=== PATIENT | male | born 1950 | race Caucasian/White ===

== ENCOUNTER 2017-12-06 11:18 | Inpatient (IN) | payer MEDICARE, MEDICAID ==
[~2017-12-06] VITALS: Ht 180.3 cm; Wt 62.6 kg
[2017-12-06] MEDS ORDERED: ESCI10TA PO (11:43)
[2017-12-06] MEDS ORDERED: PENI250C2 PO (11:43)
[2017-12-06] MEDS ORDERED: METF500T6 PO (11:43)
[2017-12-06] MEDS ORDERED: IV NORMAL SALINE 500 ML BAG IV ONE (12:00)
[2017-12-06 12:06] LABS: BASOPHILS % (AUTO) 0.4 % (0.0-2.0); EOSINOPHILS # (AUTO) 0.1 K/uL (0.0-0.7); EOSINOPHILS % (AUTO) 0.8 % (0.0-7.0); HEMATOCRIT 39.2 % (36.7-47.1); HEMOGLOBIN 12.9 g/dL (12.5-16.3); LYMPHOCYTES # (AUTO) 0.6 K/uL (20.0-40.0); LYMPHOCYTES % (AUTO) 8.3 % (20.5-51.5); MEAN CORPUSCULAR HEMOGLOBIN 26.4 uug (23.8-33.4); MEAN CORPUSCULAR HGB CONC 33 g/dL (32.5-36.3); MEAN CORPUSCULAR VOLUME 80.3 fL (73.0-96.2); MONOCYTES # (AUTO) 0.6 K/uL (2.0-10.0); MONOCYTES % (AUTO) 8.2 % (0.0-11.0); NEUTROPHILS # (AUTO) 5.9 K/uL (1.8-8.9); NEUTROPHILS % (AUTO) 82.3 % (38.5-71.5); PLATELET COUNT (AUTO) 179 K/uL (152-348); RED BLOOD CELL COUNT(AUTO) 4.88 MIL/uL (4.06-5.63); WHITE BLOOD COUNT (AUTO) 7.2 K/uL (3.6-10.2)
[2017-12-06 12:17] LABS: CREATININE 0.8 mg/dL (0.6-1.3); POTASSIUM 4.7 mmol/L (3.5-5.1)
[2017-12-06 12:25] LABS: BILIRUBIN,DIRECT 0.1 mg/dL (0.0-0.2); BILIRUBIN,TOTAL 0.1 mg/dL (0.2-1.0); TOTAL PROTEIN, SERUM 8.2 g/dL (6.4-8.2)
[2017-12-06] MEDS ORDERED: INSULIN REGULAR, HUMAN 1,000 UNITS/10 ML VIAL SUBCUT ONE (12:30)
[2017-12-06] MEDS ORDERED: INSULIN REGULAR, HUMAN 300 UNIT/3 ML VIAL ONE (12:34)
[2017-12-06] MEDS ORDERED: IV NORMAL SALINE 100 ML ONE (12:53)
[2017-12-06] MEDS ORDERED: IOHEXOL 300MG/ML 100 ML INFUS..BTL ONE (12:53)
[2017-12-06] MEDS ORDERED: SWABABLE VALVE TRANSFER SET EA MC ONE (12:53)
[2017-12-06 13:36] LABS: *BILIRUBIN,URIN NEGATIVE (NEGATIVE); *BLOOD, URINE NEGATIVE (NEGATIVE); *CLARITY,URINE CLOUDY (CLEAR); *COLOR,URINE YELLOW (YELLOW); *KETONES,URINE NEGATIVE (NEGATIVE); *PROTEIN,URINE 1+ (NEGATIVE); LEUKOCYTE ESTERASE ,URINE 2+ (NEGATIVE); NITRITE, URINE NEGATIVE (NEGATIVE)
[2017-12-06 13:48] LABS: UGLUCOSE 2+ (NEGATIVE)
[2017-12-06 13:57] LABS: BACTERIA,URINE MANY /HPF (NONE SEEN); RBC,URINE 0-3 /HPF (0-3); SQUAMOUS EPITHELIAL CELL,UR MODERATE /HPF (NONE SEEN); WBC,URINE 80-100 /HPF (0-3)
[2017-12-06 14:35] VITALS: BP 139/77
[2017-12-06] MEDS ORDERED: DEXTROSE 50% 50 ML DISP.SYRIN IV PRN (17:00)
[2017-12-06] MEDS: INSULIN REGULAR, HUMAN 300 UNIT/3 ML VIAL SQ PRN ×2 (17:39→20:30)
[2017-12-06] MEDS: BLOOD SUGAR DIAGNOSTIC 1 EACH STRIP VI SCH ×2 (17:41→20:28)
[2017-12-06] MEDS: CEFTRIAXONE 1 G in IV DEXTROSE 5% 50 ML IV SCH (19:47)
[2017-12-06 20:26] VITALS: BP 121/77
[2017-12-07 04:51] VITALS: BP 124/76
[2017-12-07] MEDS: PANTOPRAZOLE SODIUM 40 MG TABLET.DR PO SCH (06:10)
[2017-12-07] MEDS: BLOOD SUGAR DIAGNOSTIC 1 EACH STRIP VI SCH ×4 (06:34→20:21)
[2017-12-07] MEDS: INSULIN REGULAR, HUMAN 300 UNIT/3 ML VIAL SQ PRN ×4 (07:21→20:23)
[2017-12-07] MEDS: ESCITALOPRAM OXALATE 10 MG TABLET PO SCH (08:04)
[2017-12-07 11:01] VITALS: BP 126/76
[2017-12-07 15:06] VITALS: BP 113/69
[2017-12-07 20:00] VITALS: BP 107/69
[2017-12-07] MEDS: CEFTRIAXONE 1 G in IV DEXTROSE 5% 50 ML IV SCH (20:15)
[2017-12-08] VITALS (9 sets, daily range): BP systolic 100–129; BP diastolic 59–96
[2017-12-08] MEDS: PANTOPRAZOLE SODIUM 40 MG TABLET.DR PO SCH (06:23)
[2017-12-08] MEDS: BLOOD SUGAR DIAGNOSTIC 1 EACH STRIP VI SCH ×4 (06:32→20:35)
[2017-12-08 06:37] LABS: BASOPHILS % (AUTO) 0.3 % (0.0-2.0); EOSINOPHILS # (AUTO) 0.1 K/uL (0.0-0.7); EOSINOPHILS % (AUTO) 1.3 % (0.0-7.0); HEMATOCRIT 34.6 % (36.7-47.1); HEMOGLOBIN 11.4 g/dL (12.5-16.3); LYMPHOCYTES # (AUTO) 0.8 K/uL (20.0-40.0); LYMPHOCYTES % (AUTO) 11.4 % (20.5-51.5); MEAN CORPUSCULAR HEMOGLOBIN 26.3 uug (23.8-33.4); MEAN CORPUSCULAR HGB CONC 33 g/dL (32.5-36.3); MEAN CORPUSCULAR VOLUME 79.9 fL (73.0-96.2); MONOCYTES # (AUTO) 0.6 K/uL (2.0-10.0); NEUTROPHILS # (AUTO) 5.6 K/uL (1.8-8.9); PLATELET COUNT (AUTO) 184 K/uL (152-348); RED BLOOD CELL COUNT(AUTO) 4.33 MIL/uL (4.06-5.63); WHITE BLOOD COUNT (AUTO) 7.2 K/uL (3.6-10.2)
[2017-12-08 06:50] LABS: BILIRUBIN,TOTAL 0.2 mg/dL (0.2-1.0); MAGNESIUM 1.6 mg/dL (1.8-2.4); PHOSPHOROUS 3.1 mg/dL (2.5-4.9); POTASSIUM 4.3 mmol/L (3.5-5.1); TOTAL PROTEIN, SERUM 7.6 g/dL (6.4-8.2)
[2017-12-08] MEDS ORDERED: METFORMIN HCL 500 MG TABLET PO SCH (08:00)
[2017-12-08 08:06] LABS: AFP, TUMOR MARKER 3.2 ng/mL (0.0-8.3)
[2017-12-08] MEDS: ESCITALOPRAM OXALATE 10 MG TABLET PO SCH ×2 (08:09→15:51)
[2017-12-08] MEDS ORDERED: MAGNESIUM SULFATE/D5W 100 ML IV SCH (08:45)
[2017-12-08] MEDS: INSULIN GLARGINE,HUM 300 UNITS/3 ML CARTRIDGE SQ SCH ×2 (08:58→20:38)
[2017-12-08] MEDS ORDERED: MIDAZOLAM HCL 2 MG/2 ML VIAL IV PRN (10:45)
[2017-12-08] MEDS ORDERED: NALOXONE HCL 0.4 MG/ML AMPUL IV PRN (10:45)
[2017-12-08] MEDS ORDERED: FENTANYL CITRATE 100 MCG/2 ML AMPUL IV PRN (10:45)
[2017-12-08] MEDS ORDERED: LIDOCAINE HCL 1% 20 ML VIAL ONE (11:26)
[2017-12-08] MEDS: INSULIN REGULAR, HUMAN 300 UNIT/3 ML VIAL SQ PRN ×3 (13:29→20:37)
[2017-12-08] MEDS: LEVOFLOXACIN 500 MG TABLET PO SCH (15:48)
[2017-12-09 04:00] VITALS: BP 137/74
[2017-12-09] MEDS: PANTOPRAZOLE SODIUM 40 MG TABLET.DR PO SCH (06:48)
[2017-12-09] MEDS: BLOOD SUGAR DIAGNOSTIC 1 EACH STRIP VI SCH ×2 (06:55→10:51)
[2017-12-09] MEDS: INSULIN REGULAR, HUMAN 300 UNIT/3 ML VIAL SQ PRN ×2 (07:30→11:35)
[2017-12-09] MEDS ORDERED: LEVO500T2 PO (07:46)
[2017-12-09] MEDS ORDERED: Amoxicillin-Clav 500-125MG Tab PO (07:46)
[2017-12-09] MEDS: ESCITALOPRAM OXALATE 10 MG TABLET PO SCH (08:08)
[2017-12-09] MEDS: INSULIN GLARGINE,HUM 300 UNITS/3 ML CARTRIDGE SQ SCH (08:11)
[2017-12-09] MEDS ORDERED: AMOXICILLIN-CLAVUL 500-125MG TABLET PO SCH (09:00)
[2017-12-09 11:30] VITALS: BP 129/72
[2017-12-09] MEDS: LEVOFLOXACIN 500 MG TABLET PO SCH (15:14)
== END 2017-12-09 15:30 | DRG 435 ==
LOC: ER 11:18 → TELE 13:42 → MED 17:50
PROVIDERS: ADMIT Internal Medicine; ATTEND Internal Medicine
PROC: 0FB13ZX Excision of Right Lobe Liver, Percutaneous Approach, Diagnostic (ICD-10-PCS; 2017-12-07)
PROC: 0FB13ZX Excision of Right Lobe Liver, Percutaneous Approach, Diagnostic (ICD-10-PCS; principal; 2017-12-08)
DX: C22.0 Liver cell carcinoma (principal); G93.41 Metabolic encephalopathy; J90 Pleural effusion, not elsewhere classified; C78.00 Secondary malignant neoplasm of unspecified lung; R53.2 Functional quadriplegia; E11.65 Type 2 diabetes mellitus with hyperglycemia; E44.1 Mild protein-calorie malnutrition; Q25.46 Tortuous aortic arch; N39.0 Urinary tract infection, site not specified; E87.1 Hypo-osmolality and hyponatremia; J98.11 Atelectasis; Z68.1 Body mass index [BMI] 19.9 or less, adult; R62.7 Adult failure to thrive; E83.01 Wilson's disease; M84.452S Pathological fracture, left femur, sequela; Z79.84 Long term (current) use of oral hypoglycemic drugs; B95.2 Enterococcus as the cause of diseases classified elsewhere; B96.1 Klebsiella pneumoniae [K. pneumoniae] as the cause of diseases classified elsewhere; Z79.899 Other long term (current) drug therapy; B96.20 Unspecified Escherichia coli [E. coli] as the cause of diseases classified elsewhere; Z16.11 Resistance to penicillins; Z16.29 Resistance to other single specified antibiotic; M25.552 Pain in left hip; Z74.01 Bed confinement status; Z87.891 Personal history of nicotine dependence; Z86.19 Personal history of other infectious and parasitic diseases; R93.8 Abnormal findings on diagnostic imaging of other specified body structures
CPT/HCPCS: 36415; 70030-TC; 71045; 71275; 73502; 74150; 76705; 82105; 82378; 83690; 83735; 84100; 84443; 85025; 85610; 85730; 86301; 86592; 87077; 87086; 88342; 92610; 93005; A4663; J0696; J1815; J2250; J2310; J3010; J3475; J3490; J7030; J7050; J7060; Q9967